=== PATIENT | female | born 1945 | race Caucasian/White ===

== ENCOUNTER 2018-02-17 13:14 | Emergency (ER) | payer OTHER ==
[~2018-02-17] VITALS: Ht 172.7 cm; Wt 50.4 kg
[2018-02-17] MEDS ORDERED: PROAIR RESPICL90 MCG INH (13:37)
[2018-02-17] MEDS ORDERED: ARIMIDEX PO (13:37)
[2018-02-17] MEDS ORDERED: LIPITOR 20 MG T20 M1 PO (13:38)
[2018-02-17] MEDS ORDERED: LEXAPRO 10 MG T10 M2 PO (13:39)
[2018-02-17] MEDS ORDERED: FISH OIL 1,001000 M2 PO (13:39)
[2018-02-17 14:05] LABS: ABSOLUTE NEUTROPHILS 7.4 thou/uL (1.4-8.2); BASOPHILS 0.5 % (0.0-2.0); EOSINOPHILS 1.7 % (0.0-3.0); HEMATOCRIT 39.1 % (37.0-47.0); HEMOGLOBIN 13.1 gm/dL (12.0-15.0); LYMPHOCYTES 20.6 % (24.0-44.0); MCH 36.2 pg (26.0-34.0); MCHC 33.5 g/dL (28.0-37.0); MCV 108.2 fL (80.0-100.0); MONOCYTES 6.3 % (1.0-8.0); PLATELET COUNT 300 thou/uL (150-400); POLYS 70.9 % (36.0-66.0); RBC 3.61 mil/uL (4.20-5.00); RDW 13.8 % (10.5-14.5); WBC 10.4 thou/uL (4.0-11.0)
[2018-02-17 14:24] LABS: CREATININE 0.8 mg/dL (0.6-1.0); POTASSIUM 4.5 mmol/L (3.5-5.1)
[2018-02-17 14:28] LABS: ALBUMIN 3.7 g/dL (3.4-5.0); TOTAL BILIRUBIN 0.3 mg/dL (<0.1-1.0)
[2018-02-17 14:48] LABS: MACROCYTES 2+
[2018-02-17] MEDS ORDERED: AUGMENTIN 500-1 EACH PO (14:54)
[2018-02-17 15:30] VITALS: BP 119/70
== END 2018-02-17 15:31 | disposition home or self-care (01) ==
LOC: ER 13:14
PROVIDERS: Physician Assistant
DX: S51.851A Open bite of right forearm, initial encounter (principal); L03.113 Cellulitis of right upper limb; W55.01XA Bitten by cat, initial encounter; Y93.89 Activity, other specified; Y92.89 Other specified places as the place of occurrence of the external cause; Y99.8 Other external cause status; E78.00 Pure hypercholesterolemia, unspecified; J44.9 Chronic obstructive pulmonary disease, unspecified; Z90.49 Acquired absence of other specified parts of digestive tract; Z90.12 Acquired absence of left breast and nipple; Z88.8 Allergy status to other drugs, medicaments and biological substances

== ENCOUNTER 2020-07-05 11:29 | Inpatient (IN) | payer OTHER ==
[~2020-07-05] VITALS: Ht 175.3 cm; Wt 23.1 kg
[2020-07-05] VITALS (40 sets, daily range): BP systolic 77–152; BP diastolic 45–89
[~2020-07-05 11:29] MED LIST: ARIMIDEX PO; AUGMENTIN 500-1 EACH PO; FISH OIL 1,001000 M2 PO; LEXAPRO 10 MG T10 M2 PO; LIPITOR 20 MG T20 M1 PO; PROAIR RESPICL90 MCG INH
[2020-07-05] MEDS ORDERED: ESCITALOPRAM OX10 MG PO (11:45)
[2020-07-05] MEDS ORDERED: OMEPRAZOLE 20 M20 M1 PO (11:45)
[2020-07-05 12:15] LABS: BE(vivo) -3.3 mmol/L (-2 to +3); HCO3 23.8 mmol/L (22.0-26.0); PCO2 51.1 mmHg (35.0-45.0); PO2 51.5 mmHg (80.0-100.0); pH 7.286 (7.360-7.450); sO2 81.9 % (92.0-98.0)
[2020-07-05 12:48] LABS: ABSOLUTE NEUTROPHILS 6.8 thou/uL (1.4-8.2); BASOPHILS 0.2 % (0.0-2.0); HEMATOCRIT 41.8 % (37.0-47.0); HEMOGLOBIN 12.6 gm/dL (12.0-15.0); MCH 29.2 pg (26.0-34.0); MCHC 30.2 g/dL (28.0-37.0); MCV 96.7 fL (80.0-100.0); MONOCYTES 9.9 % (1.0-8.0); PLATELET COUNT 231 thou/uL (150-400); POLYS 84.9 % (36.0-66.0); RBC 4.32 mil/uL (4.20-5.00)
[2020-07-05 12:59] LABS: CALCIUM 9.5 mg/dL (8.5-10.1); CREATININE 1.8 mg/dL (0.6-1.0); POTASSIUM 5.2 mmol/L (3.5-5.1)
[2020-07-05 13:07] LABS: ALBUMIN 3.2 g/dL (3.4-5.0); MAGNESIUM 2.4 mg/dL (1.8-2.4); TOTAL BILIRUBIN 0.6 mg/dL (0.2-1.0); TOTAL PROTEIN 6.7 g/dL (6.4-8.2); TROPONIN-I 0.48 ng/mL (<0.06)
[2020-07-05 13:34] LABS: BE(vivo) 0.9 mmol/L (-2 to +3); HCO3 28.1 mmol/L (22.0-26.0); PCO2 56.6 mmHg (35.0-45.0); PO2 91.1 mmHg (80.0-100.0); pH 7.314 (7.360-7.450); sO2 96.2 % (92.0-98.0)
[2020-07-05 13:57] LABS: ANISOCYTOSIS 1+; PLATELET ESTIMATE NORMAL
--- NOTE | 2020-07-05 14:16 | NUR ---
ATTEMPTED TO CALL REPORT; ICU NURSE STATED THEY WERE NEVER INFORMED THEY WERE GETTING ANOTHER PT AND SAID THEY WOULD CALL BACK AFTER DETERMINING WHO WOULD BE TAKING THE PT
--- NOTE | 2020-07-05 17:15 | NUR ---
O2 SAT IN THE LOWER 80'S, ENCOURAGED TO TAKE DEEP BREATHES, FIO2 ON BIPAP INCREASED TO 100%, DR SEARS NOTIFIED. ORDERS RECEIVED.
[2020-07-05 17:31] LABS: BE(vivo) -1.4 mmol/L (-2 to +3); HCO3 25.2 mmol/L (22.0-26.0); PCO2 49.9 mmHg (35.0-45.0); sO2 84.3 % (92.0-98.0)
[2020-07-05 17:33] LABS: PO2 52.7 mmHg (80.0-100.0); pH 7.322 (7.360-7.450)
--- NOTE | 2020-07-05 18:45 | NUR ---
DR ROSA CALLED BACK IN REGARDS TO CARDIOLOGY CONSULT, INFORMED OF ELEVATED TROPONIN OF 0.48 AND BNP OF 22,000. EKG DONE AT BEDSIDE PER ORDER.
--- NOTE | 2020-07-05 19:05 | NUR ---
[facility]G'S CALLED TO DR CHINCHILLA BY RT, PATIENT EDUCATED ABOUT INTUBATION AND IS IN AGREEMENT. SEDATION GIVEN FOR INTUBATION AND INTUBATED WITH 7.0 ETT AT [address] MOULTON. O2 SAT DOWN INTO THE LOWER 60'S. ETT REPOSIONED BY DR MOULTON. OGT INSERTED 19FR. SUCTIONED THICK CLEAR TO CREAMY SECRETIONS. PROPOFOL INITIATED AND TITRATED FOR SEDATION AND LEVOPHED INITIATED FOR HYPOTENSION. BP AND SAT'S ARE INCREASING. DR CHINCHILLA NOTIFIED OF RESP STATUS BY DR MOULTON AND JOY.
[2020-07-05 19:08] LABS: BE(vivo) -2.9 mmol/L (-2 to +3); sO2 87.1 % (92.0-98.0)
[2020-07-05 19:09] LABS: pH 7.299 (7.360-7.450)
--- NOTE | 2020-07-05 20:27 | NUR ---
DR SEARS UPDATED TO PATIENT STATUS.
[2020-07-05 22:52] LABS: BE(vivo) -0.3 mmol/L (-2 to +3); HCO3 23.7 mmol/L (22.0-26.0); PO2 129.6 mmHg (80.0-100.0); pH 7.425 (7.360-7.450); sO2 98.7 % (92.0-98.0)
--- NOTE | 2020-07-05 23:24 | NUR ---
CALLED DR. CHINCHILLA AT 2230 TO REPORT FLOTRACK NUMBERS AND TO GIVE STATUS UPDATE. REPORTED: FXU=2349, SVV=4, CI=1.8, CO=2.4, CVP=13, BP 149/88 VIA ART LINE, MINIMAL URINE OUTPUT. ASKED IF HE WISHED NS TO STAY AT 126ML/HR AND IF HE WANTED LASIX. ALSO REPORTED LARGE AIR LEAK IN CT AND SUBQ AIR FROM NECK DOWN TO NIPPLE LINE BL. ORDERS TO GIVE 40MG LASIX IV, KEEP NS RUNNING AND INCREASE CT TO -40 OF SUCTION.
[2020-07-06] VITALS (20 sets, daily range): BP systolic 69–165; BP diastolic 41–100
[2020-07-06 04:58] LABS: HEMATOCRIT 41.8 % (37.0-47.0); HEMOGLOBIN 13.1 gm/dL (12.0-15.0); MCH 29.5 pg (26.0-34.0); MCHC 31.3 g/dL (28.0-37.0); MCV 94.4 fL (80.0-100.0); RBC 4.43 mil/uL (4.20-5.00); RDW 16.1 % (10.5-14.5); WBC 9.4 thou/uL (4.0-11.0)
[2020-07-06 05:15] LABS: CREATININE 1.2 mg/dL (0.6-1.0); TROPONIN-I 0.43 ng/mL (<0.06)
--- NOTE | 2020-07-06 09:40 | NUR ---
cm notified by cm supervisor rework that hospitalist reporting there is no one to make decision for her and possible will need to look into guardianship, if unable to find contacts for hans
--- NOTE | 2020-07-06 10:26 | 2DMMODE ---
[facility] [place] [address] 2 D/M-MODE ECHOCARDIOGRAM Name: HERMAN SOLOMON Room #: 237-P ADM IN M.R.#: [id number] Admission: 07/05/20 Attend Phys: Charlie Salomon MD Discharge: Date of : 41 Report #: [id number] THIS REPORT FOR: cc: MATEUS GIFFORD MD Physician not on staff Tj Odonnell MD [facility] ~ APPROVED REPORT Study performed: 07/06/2020 08:53:55 EXAM: Comprehensive 2D, Doppler, and color-flow Echocardiogram Patient Location: ICU Room #: [facility] Status: on-call BSA: 1.54 HR: 90 bpm BP: 152/81 mmHg Rhythm: RBBB Other Information Study Quality: Adequate/off axis images Technically limited study due to thin body habitus, on vent. Indications Respiratory failure, elevated troponin. Hx: CA, COPD, HLP. 2D Dimensions IVSd: 8.69 (7-11mm) LVOT Diam: 20.14 (18-24mm) LVDd: 24.19 mm PWd: 9.93 (7-11mm) Ascending Ao: 28.29 (22-36mm) LVDs: 18.89 (25-40mm) Aortic Root: 31.72 mm Aortic Valve AoV Peak Ricky.: 1.03 m/s AO Peak Gr.: 4.23 mmHg LVOT Max P.20 mmHg LVOT Max V: 0.55 m/s JONATHAN Vmax: 1.70 cm2 Mitral Valve E/A Ratio: 0.7 MV Decel. Time: 172.15 ms [facility] [address] [place] [address] 2 D/M-MODE ECHOCARDIOGRAM Name: HERMAN SOLOMON Room #: 237-P ADM IN Gisell#: [id number] Admission: 07/05/20 Attend Phys: Charlie Salomon MD Discharge: Date of : 41 Report #: [id number] MV E Max Ricky.: 0.39 m/s MV A Ricky.: 0.57 m/s MV PHT: 49.92 ms Pulmonary Valve PV Peak Ricky.: 0.49 m/s PV Peak Gr.: 0.96 mmHg Tricuspid Valve TR Peak Ricky.: 3.27 m/s RAP Estimate: 15.00 mmHg TR Peak Gr.: 43.00 mmHg PA Pressure: 58.00 mmHg Left Ventricle Left ventricular cavity is small. There is normal left ventricular wall thickness. Left ventricular systolic function is borderline. Septal flattening consistent with right ventricular pressure overload. LVEF is 50%. Mild diastolic dysfunction is present. Right Ventricle Right ventricle is severely dilated and severely hypokinetic. Large apically displaced round right ventricular mass. ( 2.0cm x 2.5cm ), probably attached to right ventricle by a stalk. Differential diagnosis is broad and includes thrombus, cardiac masses both benign and malignant (myxoma, teratoma, metastases, sarcoma), and inflammatory masses (less likely; fungus, parasitic). Favor RV myxoma or thrombus Atria The left atrium size is normal. Right atrium is dilated. Aortic Valve Aortic valve is trileaflet, mildly calcified. No aortic regurgitation is present. There is no aortic valvular stenosis. Mitral Valve The mitral valve is normal in structure. There is no mitral valve regurgitation noted. No evidence of mitral valve stenosis. Tricuspid Valve The tricuspid valve is normal in structure. Mild tricuspid regurgitation. Estimated PAP is 55-60mmHg. Pulmonic Valve The pulmonary valve is normal in structure. Moderate pulmonic regurgitation. [facility] [address] [place] [address] 2 D/M-MODE ECHOCARDIOGRAM Name: HERMAN SOLOMON Room #: 237-P ADM IN M.R.#: [id number] Admission: 07/05/20 Attend Phys: Charlie Salomon MD Discharge: Date of : 41 Report #: [id number] Great Vessels The aortic root is normal in size. IVC is dilated and collapses <50% with inspiration. Pericardium Small pericardial effusion. Pleural effusion noted. <Conclusion> Left ventricular systolic function is borderline. Septal flattening consistent with right ventricular pressure overload. LVEF is 50%. Septal flattening consistent with right ventricular pressure overload. Mild diastolic dysfunction is present. Right ventricle is severely dilated and severely hypokinetic. Large apically displaced, round right ventricular mass. ( 2.0cm x 2.5cm ), probably attached to right ventricle by a stalk. Differential diagnosis is broad and includes thrombus, cardiac masses both benign and malignant (myxoma, teratoma, metastases, sarcoma), and inflammatory masses (less likely; fungus, parasitic). Favor RV myxoma or thrombus Aortic valve is trileaflet, mildly calcified. No aortic regurgitation or stenosis The mitral valve is normal in structure. No mitral valve regurgitation. Mild tricuspid regurgitation. Estimated pulmonary artery pressure of 55-60mmHg. Small pericardial effusion. <ELECTRONICALLY SIGNED> By: Tj Odonnell MD, FACC 07/06/20 1025 1025 1025 Tj Odonnell MD, FACC /INF
--- NOTE | 2020-07-06 10:37 | EKG ---
[facility] [place] [address] ELECTROCARDIOGRAM REPORT Name: HERMAN SOLOMON Room #: 237- ADM IN M.R.#: [id number] Admission: 07/05/20 Attend Phys: Charlie Salomon MD Discharge: Date of : 41 Report #: [id number] THIS REPORT FOR: cc: MATEUS GIFFORD MD Physician not on staff Tj Odonnell MD [facility] ~ THIS REPORT FOR: //name// [facility] ED Test Date: 2020-07-05 Test Time: 14:13:26 Pat Name: HERMAN SOLOMON Department: Room: [facility] Gender: F Rat Farmer: [facility] : 1945 Requested By: Rey Wells Order Number: [id number] MD: Tj Odonnell Measurements Intervals [place] Rate: 88 P: 77 CO: 151 QRS: 106 QRSD: 135 T: -29 QT: 391 QTc: 473 Interpretive Statements Sinus rhythm Right ventricular hypertrophy No previous ECG available for comparison Electronically Signed On 07-06-2020 10:37:24 GELATIN PLANT SUPERVISOR by Tj Odonnell [email or web address] <ELECTRONICALLY SIGNED> By: Tj Odonnell MD, FACC 07/06/20 1037 [facility]3 141 Tj Odonnell MD, [facility] /EPI
--- NOTE | 2020-07-06 10:43 | EKG ---
[facility] [place] [address] ELECTROCARDIOGRAM REPORT Name: HERMAN SOLOMON Room #: 237- ADM IN M.R.#: [id number] Admission: 07/05/20 Attend Phys: Charlie Salomon MD Discharge: Date of : 41 Report #: [id number] THIS REPORT FOR: cc: MATEUS GIFFORD MD Physician not on staff Tj Odonnell MD [facility] ~ THIS REPORT FOR: //name// [facility] Test Date: 2020-07-05 Test Time: 18:37:37 Pat Name: HERMAN SOLOMON Department: Room: [facility] Gender: F Guest Services Manager: CRISTEL : 1945 Requested By: Tj Odonnell Order Number: [id number] MD: Tj Odonnell Measurements Intervals [place] Rate: 84 P: 81 [place]: 150 QRS: 104 QRSD: 135 T: -25 QT: 390 QTc: 462 Interpretive Statements Sinus rhythm Right ventricular hypertrophy Baseline wander in lead(s) V4 Compared to ECG 07/05/2020 14:13:26 No significant changes Electronically Signed On 07-06-2020 10:43:11 CABLE INSTALLER REPAIRER HELPER by Tj Odonnell [email or web address] <ELECTRONICALLY SIGNED> By: Tj Odonnell MD, [facility] 07/06/20 1043 1837 1837 Tj Odonnell MD, [facility] /EPI
--- NOTE | 2020-07-06 10:47 | EKG ---
[facility] [place] [address] ELECTROCARDIOGRAM REPORT Name: HERMAN SOLOMON Room #: 237- ADM IN M.R.#: [id number] Admission: 07/05/20 Attend Phys: Charlie Salomon MD Discharge: Date of : 41 Report #: [id number] THIS REPORT FOR: cc: MATEUS GIFFORD MD Physician not on staff Tj Odonnell MD [facility] ~ THIS REPORT FOR: //name// [facility] Test Date: 2020-07-06 Test Time: 07:59:02 Pat Name: HERMAN SOLOMON Department: Room: [facility] Gender: F Lithographic Press Feeder: [place] : 1945 Requested By: Tj Odonnell Order Number: [id number] MD: Tj Odonnell Measurements Intervals [place] Rate: 69 P: 82 [place]: 151 QRS: 114 QRSD: 132 T: -85 QT: 427 QTc: 458 Interpretive Statements Sinus rhythm RBBB Consider RVH Compared to ECG 07/05/2020 18:37:37 No significant change was found Electronically Signed On 07-06-2020 10:47:15 MOTOR ASSEMBLER by Tj Odonnell [email or web address] <ELECTRONICALLY SIGNED> By: Tj Odonnell MD, FACC 07/06/20 1047 0759 0759 Tj Odonnell MD, [facility] /EPI
[2020-07-06 12:12] LABS: BE(vivo) -7.5 mmol/L (-2 to +3); PO2 66.4 mmHg (80.0-100.0); sO2 84.4 % (92.0-98.0)
[2020-07-06 12:13] LABS: PCO2 79.2 mmHg (35.0-45.0); pH 7.099 (7.360-7.450)
--- NOTE | 2020-07-06 14:59 | NUR ---
PT INTUBATED, SETTINGS CHANGED UNDER THE PROVIDERS ORDERS. RIGHT CHEST TUBE IN PLACE WITH MINIMIAL SERO-SANG DRAINAGE, DRESSING CDI, SMALL AIR LEAK PROVIDER AWARE. PT WAS ABLE TO FOLLOW COMMANDS THIS AM. PT HAS DIFFUSE BILATERAL SUBCUTANEOUS EMPHASEMA. INCREASED CREATNINE AND LACTATE RESOLVING. ECCO COMPLETED THIS AM, FOLLOWED BY CLAIR ULTRASOUND OF BILATERAL LEGS, AND CONSULT TO DR WHITMAN. DR WHITMAN SIGNED OFF, NO ORDERS. FLOTRAC IN PLACE FROM RIGHT RADIAL A-LINE, PROVIDER AWARE OF NUMBERS. LEVOPHED NEEDED TO BE TITRATED UP THROUGHTOUT DAY TO SUSTAIN MAP > THAN 60. BEAR HUGGER IN PLACE DUE TO INABILITY TO OBTAIN TEMPERATURE. PT HAS ONE FRIEND LISTED, WHO SAYS THAT HE HAS BEEN HER PRIMARY CAREGIVER FOR MULTIPLE YEARS, HE DOES NOT HAVE ANY OFFICIAL PAPERWORK THAT STATES HIS DECISION MAKING POWER. I INSTRUCTED HIM TO FIND ANY OFFICIAL PAPER WORK THAT GIVES HIM DECISION MAKING ABILITY. DR SEARS HAS BEEN IN CONTACT WITH CASE MANAGEMENT TO OBTAIN LEGAL GUARDIAN SHIP FROM/WITH THE STATE TO MAKE MORE INFORMED DECISIONS FOR THE PT. FRIEND (CARLA) HAS BEEN EDUCATED. PT HAS BEEN UPDATED AND EDUCATED ON CONDITION AND POC. PT NOT PROGRESSING TOWARDS POC. AFEBRILE, NO BM.
[2020-07-07] VITALS (25 sets, daily range): BP systolic 48–128; BP diastolic 27–71
[2020-07-07 05:10] LABS: HEMATOCRIT 35.3 % (37.0-47.0); HEMOGLOBIN 12.4 gm/dL (12.0-15.0); MCH 32.1 pg (26.0-34.0); MCV 91.7 fL (80.0-100.0); PLATELET COUNT 151 thou/uL (150-400); RBC 3.85 mil/uL (4.20-5.00); RDW 13.4 % (10.5-14.5); WBC 8.5 thou/uL (4.0-11.0)
[2020-07-07 05:17] LABS: BE(vivo) -6.1 mmol/L (-2 to +3); PCO2 36.3 mmHg (35.0-45.0); PO2 220.1 mmHg (80.0-100.0); pH 7.336 (7.360-7.450); sO2 99.4 % (92.0-98.0)
[2020-07-07 07:18] LABS: ALBUMIN 2.9 g/dL (3.4-5.0); CALCIUM 7.6 mg/dL (8.5-10.1); CREATININE 1.8 mg/dL (0.6-1.0); TOTAL BILIRUBIN 0.4 mg/dL (0.2-1.0); TOTAL PROTEIN 5.9 g/dL (6.4-8.2)
[2020-07-07 07:35] LABS: POTASSIUM 5.5 mmol/L (3.5-5.1)
[2020-07-07 13:53] LABS: ABSOLUTE NEUTROPHILS 7.9 thou/uL (1.4-8.2); NUCLEATED RBCS 4 /100WBC
[2020-07-07 13:54] LABS: ANISOCYTOSIS 1+
--- NOTE | 2020-07-07 16:22 | NUR ---
PT INTUBATED AND SEDATED, VENT SETTINGS UNCHANGED. CHEST TUBE PATENT WITH SMALL AIR LEAK, PROVIDER AWARE. A-LINE IN PLACE, PATENT, SLUGGISH WHEN DRAWING BLOOD, NO HEMATOMA, PULSE INTACT. FLOTRAC IN PLACE. AFEBRILE, NO BM, LOW UOP, PROVIDER AWARE. PT AND FRIEND HAVE BEEN UPDATED AND EDUCATED ON PT CONDITION AND POC. PT NOT PROGRESSING TOWARDS POC.
--- NOTE | 2020-07-07 23:00 | NUR ---
SPOKE AT LENGTH TO PTS LABOR TRAINER CARLA ART BP LOW 70'S HE STATES IF SHE DIES TONIGHT SHE WANTS HER BODY TO GO [facility] DR CHINCHILLA PLACED ORDERS FOR DOBUTAMINE GTT AT 2.5 MCG. REMAINS IN SINUS RHYTHM WILL CONT TO MONITOR
[2020-07-08] VITALS (24 sets, daily range): BP systolic 70–121; BP diastolic 40–82
--- NOTE | 2020-07-08 06:00 | NUR ---
REMAINS INTUBATED AND SEDATED. TITRATING LEVO GTT DOWN REMAINS ON DOBUTAMINE AT 2.5 MCG 500 CC UO THIS SHIFT REMAINS A DNR NOT PROGRESSIG TOWARD GOALS WILL CONT TO MONITOR
[2020-07-08 07:36] LABS: ALBUMIN 2.4 g/dL (3.4-5.0); CALCIUM 8.2 mg/dL (8.5-10.1); CREATININE 2.1 mg/dL (0.6-1.0); POTASSIUM 4.8 mmol/L (3.5-5.1); TOTAL BILIRUBIN 0.7 mg/dL (0.2-1.0); TOTAL PROTEIN 5.4 g/dL (6.4-8.2)
[2020-07-08 07:37] LABS: ABSOLUTE NEUTROPHILS 8.8 thou/uL (1.4-8.2); BASOPHILS 0.1 % (0.0-2.0); HEMATOCRIT 40.8 % (37.0-47.0); HEMOGLOBIN 12.7 gm/dL (12.0-15.0); LYMPHOCYTES 6.9 % (24.0-44.0); MCH 29.2 pg (26.0-34.0); MCHC 31.1 g/dL (28.0-37.0); MCV 93.8 fL (80.0-100.0); MONOCYTES 8.4 % (1.0-8.0); PLATELET COUNT 134 thou/uL (150-400); POLYS 84.6 % (36.0-66.0); RBC 4.35 mil/uL (4.20-5.00); RDW 16.4 % (10.5-14.5); WBC 11.1 thou/uL (4.0-11.0)
--- NOTE | 2020-07-08 09:55 | NUR ---
Nutrition: PT NPO x 2 days. Nsg reports possible withdrawal of care however if care continues, REC Jevity 1.5 to reach 40 mL/hr slowly. Pt refeeding syndrome risk.
--- NOTE | 2020-07-08 11:49 | NUR ---
chart review. cm unable to visit with hans rt remains on vent, chest tube. cm spoke with CARLA via phone call, intro to cm, and dcp. cm education to see if have dpoa (make decision for her) on file at cancer center " yes i will call them, they always have me sign to make decision for her if needed. She has lived with me since her brother up at sold their parents house out from her after her parents . she has been doing good but then few weeks ago auntie called to let her know the reason she not her from her daughter that she adopted when she was 1, commented suicide. after that it was hard for me to he her to want to do anything. she been friends with my mom and i cared for her also, she recently . hans did not was to eat and was just sadden. september of 2016 she moved in with me. she is independent when feeling ok, needs some assist in and out of shower. she is able to dress her self, able to feed her self and go to bathroom on her own. live in nice home [facility] to [facility]. had hh in past and been to rehab in the past. has walker with seat and breaks. usually on 3 L of oxygen at home. this is in [facility] but would like to talk with , thank you for calling"/caregiver CARLA. will cont following as needed for dc needs.
[2020-07-09] VITALS (27 sets, daily range): BP systolic 51–148; BP diastolic 25–89
[2020-07-09 05:30] LABS: HEMATOCRIT 41.6 % (37.0-47.0); HEMOGLOBIN 13.2 gm/dL (12.0-15.0); MCH 29.3 pg (26.0-34.0); MCHC 31.7 g/dL (28.0-37.0); MCV 92.4 fL (80.0-100.0); RBC 4.5 mil/uL (4.20-5.00); RDW 15.8 % (10.5-14.5); WBC 10.3 thou/uL (4.0-11.0)
--- NOTE | 2020-07-09 05:30 | NUR ---
REMAINS INTUBATED. PROPOFOL GTT TITRATED. EXTREM FLACCID. FOLLOWS NO COMMANDS. LEVOPED GTT AT 3 MCG. 180 CC UOP THIS SHIFT. REMAINS A DNR BATHED. NOT PROGRESSING TOWARD GOALS. WILL CONT TO MONITOIR.
[2020-07-09 05:41] LABS: CALCIUM 8.6 mg/dL (8.5-10.1); CREATININE 1.7 mg/dL (0.6-1.0); POTASSIUM 4.1 mmol/L (3.5-5.1)
--- NOTE | 2020-07-09 11:45 | NUR ---
cm tried to reach dr smith at . was told by cancer center that hans pcp is not dr smith, the is [facility] and cancer dr is kadie Martinez. cm called dr curtis pcp at , no return call yet.
--- NOTE | 2020-07-09 12:28 | HC ---
[facility] [place] [address] CONSULTATION Name: HERMAN SOLOMON Room #: [facility]- ADM IN M.R.#: [id number] Admission: 07/05/20 Attend Phys: Charlie Salomon MD Discharge: Date of : 41 Report #: [id number] THIS REPORT FOR: cc: MATEUS GIFFORD MD Physician not on staff Jonathan Beth MD ~ DATE OF SERVICE: 07/06/2020 We were asked to see the patient by Dr. Elias. HISTORY OF PRESENT ILLNESS: The patient is a 75-year-old with a right ventricular mass. The patient is a 75-year-old admitted 07/05/2020 with shortness of breath and altered mental status. The patient was brought from home when a caregiver noticed that she had labored breathing and oxygen saturation on a finger oximeter said 95%. It should be said that all of this history is from the chart as the patient is currently on the ventilator. Since admission, the patient was initially started on BiPAP, but required intubation for increased work of breathing and hypoxemia. This was done emergently on 07/05. PAST HISTORY: Includes renal dysfunction, pulmonary dysfunction, cat bite, forearm cellulitis, community-acquired pneumonia, chronic obstructive pulmonary disease, dehydration, elevated troponin, severe sepsis, tetanus toxoid vaccination. CURRENT ALLERGIES: Allergic to TUBERCULIN PPD. PREVIOUS MEDICATIONS: Omeprazole, albuterol, anastrozole, Lexapro. OTHER PAST HISTORY: Includes elevated cholesterol, chronic obstructive pulmonary disease, left mastectomy, appendectomy. SOCIAL HISTORY: The patient is a former smoker, quit more than 1 year ago. REVIEW OF SYSTEMS: Not obtainable. I have no reason to differ with whatever is in the chart. PHYSICAL EXAMINATION: GENERAL: The patient is currently in bed on the ventilator. She is a small person, extremely sarcopenic. VITAL SIGNS: Blood pressure ____ on high dose of Levophed, heart rate 90, temperature 35.9, pulse ox 82. HEENT: No scleral icterus. I see no arcus. [facility] [address] [place] [address] CONSULTATION Name: HERMAN SOLOMON Room #: [address] [place] [address] IN M.R.#: [id number] Admission: 07/05/20 Attend Phys: Charlie Salomon MD Discharge: Date of : 41 Report #: [id number] NECK: No mass, no bruit audible. Jugular venous distention present. CHEST: Distant breath sounds with some subcutaneous air on the right side. HEART: Rhythm, distant heart sounds, no murmur. ABDOMEN: Flat, soft. EXTREMITIES: 1+ femoral pulses. I do not feel popliteal pulses. No skin rash or infection noted. No significant peripheral edema. We note that transthoracic echo revealed a 2.5 cm round right ventricular mass attached to what appears to be the trabeculae or chordae tendineae on the right side. I do not see atrial lesions. This was the reason for consultation. IMPRESSION: The patient has right ventricular mass. The patient presented with acute pulmonary dysfunction. Nothing has been done to rule out pulmonary embolism, but the patient is critically ill and at this point clearly the last thing this patient needs would be exploratory cardiac operation for this cardiac mass, which is either an acute discovery of a chronic problem or related to her presentation in the sense that it is thrombosed and field representative of other thrombi, embolized more distally, unlikely for this to be a myxoma as well as typically left atrial, not right ventricular. I would expect other cardiac tumors to be even further down the list. This is most likely a manifestation of thrombus and may be chronic. In any event, the patient is critically ill at this point, on high dose pressor with difficulty ventilating and oxygenating and in the setting of an already weak, chronically depleted patient, cardiac surgery not recommended at this point. Thank you for the consult. <ELECTRONICALLY SIGNED> By: Jonathan Beth MD 07/09/20 1228 1252 0041 Jonathan Beth MD /nt
--- NOTE | 2020-07-09 18:13 | NUR ---
1030 DR. OCAMPO AT BEDSIDE STATES PROGNOSIS IS POOR AND ORDERED PALLIATVIE CONSULT. 1100 PT BP BEGAN TO DECREASE SYSTOLICS INTO 70'S LOW 80'S MAPS <60. LEVOPHED TITRATED ACCORDINGLY. 1240 DR SEARS PAIGED NO NEW ORDERS AT THIS TIME. DR SEARS ADDED THAT HE HAS SPOKE W/STRAP MACHINE OPERATOR AUTOMATIC AND DUE TO PT CODE STATUS ONLY SO MUCH CAN BE DONE REGARDING PT DECREASING BP. ALSO CANCEL PALLIATIVE CONSULT PER ORION. TMAX 98.[address] MAJORITY OF DAY. URINE OUT PUT 190 THIS SHIFT. 0 CHEST TUBE OUTPUT. PT NOT PROGRESSING IN PLAN OF CARE
[2020-07-10] VITALS (94 sets, daily range): BP systolic 61–157; BP diastolic 24–100
[2020-07-10 04:04] LABS: CALCIUM 8.7 mg/dL (8.5-10.1); POTASSIUM 4.9 mmol/L (3.5-5.1)
--- NOTE | 2020-07-10 06:26 | NUR ---
This RN to bedside at 1900. Patient withdrawls from pain, and opens eyes spontaneously but otherwise does not follow commands or seem to track. Vent settings unchanged. Unable to wean levophed gtt, remains on a high amount. Chest tube in place, no output noted. Will continue to monitor.
--- NOTE | 2020-07-10 09:05 | NUR ---
0905 - SPOKE WITH CARLA, PT'S CAREGIVER AND PROVIDED UPDATE REGUARDING CURRENT GOALS AND PLAN OF CARE. PT'S CAREGIVER AGREED
--- NOTE | 2020-07-10 15:04 | NUR ---
PT SEEN TODAY BY /. PT IS PROGRESSING TOWARDS DISCHARGE, FIO2 DECREASED FROM 100% TO 70% THIS SHIFT, WHILE ON LESS SEDAIVES PT WAS SEEN GRIMACING, SLOWLING FLAILING ARMS TOWARDS THE FACE TO GUARD WHILE ORAL CARE WAS BEING PROVIDED. TO ADDRESS GRIMACING, FENTANYL GTT WAS ORDERED AND ADMINISTERED PER ORDER. PER WE ARE MONITORING THIS PT'S STATUS DAY BY DAY AND UPDATING THE CAREGIVER CARLA, WHOSE DPOA PAPERWORK WAS FOUND BY A PCP AT [facility]. PT REMAINS ON DNR, TUBE FEEDING STARTED AND MAINTAINING GOAL RATE OF 10CC/HR. CAREGIVER RJ HAS BEEN UPDATED BY THE RN THIS MORNING. CONTINUING TO MONITOR AND WILL UPDATE NEEDED.
[2020-07-11] VITALS (106 sets, daily range): BP systolic 43–148; BP diastolic 21–85
--- NOTE | 2020-07-11 06:57 | NUR ---
VSS. ST ON MONITOR. CHEST TUBE SITE BLEEDING; DRESSING SATURATED. NOTIFIED DR OCAMPO. ORDER TO CHANGE DRESSING. DRESSING CHANGED. PT BATHED. LINENS CHANGED. CHEST TUBE ATRIUM CHANGED. PT INTUBATED. SEDATED ON PROPOFOL, FENTANYL GTTS. BLOOD PRESSURE MAINTAINED ON LEVOPHED GTT. 650 CC URINE OUT OVERNIGHT. FIO2 DECREASED FROM 80% TO 60% THIS SHIFT; SATS MAINTAINED >95%. PT PROGRESSING TOWARDS GOALS IN PLAN OF CARE.
--- NOTE | 2020-07-11 11:53 | NUR ---
chart review. cont to require vent and nutritional support. spoke with RJ via phone call. " no question just will get my update today and wait and here from dr. scout maxwell i am cont to call and check on her"/jaya. passed on to bedside nurse. will cont following as needed for dc needs.
[2020-07-11 14:40] LABS: HEMOGLOBIN 13.1 gm/dL (12.0-15.0); MCHC 30.8 g/dL (28.0-37.0)
[2020-07-11 14:41] LABS: HEMATOCRIT 42.5 % (37.0-47.0); MCH 28.7 pg (26.0-34.0); MCV 93.3 fL (80.0-100.0); RBC 4.56 mil/uL (4.20-5.00)
[2020-07-11 14:49] LABS: CALCIUM 8.3 mg/dL (8.5-10.1); CREATININE 1.8 mg/dL (0.6-1.0); POTASSIUM 4.9 mmol/L (3.5-5.1)
--- NOTE | 2020-07-11 18:13 | NUR ---
VENT SETTINGS: AC14/450/10/.60. LARGE HEMATOMA TO R WRIST, ARTERIAL DOPPLER SHOWS NO RADIAL PULSE DISTAL TO HEMATOMA. REPORTED TO DR. SEARS. LEVOPHED ON STANDBY WHILE DRAWING BLOOD THIS AFTERNOON AND BP PLUMMETED TO 50'S SYSTOLIC. NOW MAXED OUT AT 30MCG. MAP > 60. SPOKE TO DAVID AGUIRRE AND UPDATED HIM ON PLAN OF CARE AND CONDITION OF PATIENT.
[2020-07-12] VITALS (10 sets, daily range): BP systolic 49–104; BP diastolic 26–60
--- NOTE | 2020-07-12 01:17 | NUR ---
PATIENT REMAINS ON THE VENT. REMAINS HYPOTENSIVE. PATIENT IS MAXED ON LEVOPHED AND VASOPRESSIN. LOW U/O. AFEBRILE. SINUS TACHY. FENTANYL FOR SEDATION. WILL KEEP MONITORING.
--- NOTE | 2020-07-12 04:43 | NUR ---
AT APPROX 0100 PATIENT CONTINUED TO BE HYPOTESIVE. MAXED ON LEVOPHED AND VASOPRESSIN. NURSE PRACTIONER INFORMED. WOOD ROUTER HAND TALKED TO FAMILY. FAMILY DECIDED TO GO COMFORT CARE. FAMILY AT THE BEDSIDE. CARE D/C'D AT APPROX 0200. PATIENT AT 0235. [facility] CALLED. PATIENT NOT A CANDIDATE FOR ORGAN OR TISSUE DONATION. DR OCAMPO NOTIFIED. NURSE PRACTIONER AWARE . PROGRAMMING ENGINEER NOTIFIED. SECURITY NOTIFIED AND BODY TAKEN TO THE MORGUE. PERSONAL BELONGINGS TAKEN WITH THE BODY.
--- NOTE | 2020-07-15 18:06 | PATH ---
[facility] [address] [place] [address] PATHOLOGY RPT PROCEDURE Name: HERMAN SOLOMON Room #: [facility] IN M.R.#: [id number] Admission: 07/05/20 Date of : 41 Discharge: 07/12/20 Report #: [id number] Path Case #: [id number] Note [facility] Accession Number: [id number] TESTS RESULT FLAG UNITS REF RANGE LAB Clinician Provided Cytology Information No. of containers..01 Other (Miscellaneous) Source: BAL DIAGNOSIS: BAL NEGATIVE FOR MALIGNANT EPITHELIAL CELLS. NORMAL BRONCHIAL CELLS AND MACROPHAGES ARE PRESENT. PULMONARY MACROPHAGES (DUST CELLS) ARE PRESENT. SILVER METHENAMINE STAINED SMEARS ARE NEGATIVE FOR PNEUMOCYSTIS JIROVECI PROPERLY CONTROLLED FUNGAL STAIN. NO FUNGAL ORGANISMS ARE PRESENT. Pathologist ICD10: 02 R06.02 Signed out by: Lucy Lopes MD, Pathologist NPI- [id number] Performed by: Maddison Workman, Airways Control Specialist ([facility]) Gross description: 01 20 ML, CLDY COLRLESS, 1TP 1SILVR /LCS 07/12/2020 1416 Local FLAG LEGEND: L-Low Normal,H-High Normal,LL-Alert Low,HH-Alert High <-Panic Low,>-Panic High,A-Abnormal,AA-Critical Abnormal Performed at: [address] [place] [address] Gabriel Mora MD, [address] [address] Lucy Lopes MD, Specimen Comment: A courtesy copy of this report has been sent to [phone], [phone] Specimen Comment: [phone] Specimen Comment: Report sent to / DR SEARS Performed at: [address], [place], [place] [address] [address] [address] PATHOLOGY RPT PROCEDURE Name: KETTY SOLOMONDA Room #: 237-P DIS IN M.R.#: [id number] Admission: 07/05/20 Date of : 41 Discharge: 07/12/20 Report #: [id number] Path Case #: [id number] AR Gabriel Mora AR Phone: [phone]
== END 2020-07-12 02:35 | DRG 870 ==
LOC: ER 11:29 → EROBS 14:29 → ICU 14:29
PROVIDERS: Emergency Medicine; Internal Medicine Pulmonary Disease; Pediatrics; ADMIT Internal Medicine; ATTEND Internal Medicine
PROC: 0B9D8ZX Drainage of Right Middle Lung Lobe, Via Natural or Artificial Opening Endoscopic, Diagnostic (ICD-10-PCS; principal; 2020-07-05)
PROC: 4A133B1 Monitoring of Arterial Pressure, Peripheral, Percutaneous Approach (ICD-10-PCS; principal; 2020-07-05)
PROC: B548ZZA Ultrasonography of Superior Vena Cava, Guidance (ICD-10-PCS; principal; 2020-07-05)
PROC: 03HY32Z Insertion of Monitoring Device into Upper Artery, Percutaneous Approach (ICD-10-PCS; principal; 2020-07-05)
PROC: 0BH18EZ Insertion of Endotracheal Airway into Trachea, Via Natural or Artificial Opening Endoscopic (ICD-10-PCS; principal; 2020-07-05)
PROC: 4A133J1 Monitoring of Arterial Pulse, Peripheral, Percutaneous Approach (ICD-10-PCS; principal; 2020-07-05)
PROC: 02HV33Z Insertion of Infusion Device into Superior Vena Cava, Percutaneous Approach (ICD-10-PCS; principal; 2020-07-05)
PROC: 5A1955Z Respiratory Ventilation, Greater than 96 Consecutive Hours (ICD-10-PCS; principal; 2020-07-05)
PROC: 5A09357 Assistance with Respiratory Ventilation, Less than 24 Consecutive Hours, Continuous Positive Airway Pressure (ICD-10-PCS; principal; 2020-07-05)
PROC: 0W9B30Z Drainage of Left Pleural Cavity with Drainage Device, Percutaneous Approach (ICD-10-PCS; principal; 2020-07-05)
DX: A41.9 Sepsis, unspecified organism (principal); J18.9 Pneumonia, unspecified organism; G92 Toxic encephalopathy; J96.01 Acute respiratory failure with hypoxia; J96.02 Acute respiratory failure with hypercapnia; I21.A1 Myocardial infarction type 2; N17.9 Acute kidney failure, unspecified; J44.1 Chronic obstructive pulmonary disease with (acute) exacerbation; J44.0 Chronic obstructive pulmonary disease with (acute) lower respiratory infection; J93.9 Pneumothorax, unspecified; R57.9 Shock, unspecified; E46 Unspecified protein-calorie malnutrition; Z68.1 Body mass index [BMI] 19.9 or less, adult; R65.20 Severe sepsis without septic shock; E86.0 Dehydration; K21.9 Gastro-esophageal reflux disease without esophagitis; F32.9 Major depressive disorder, single episode, unspecified; E78.5 Hyperlipidemia, unspecified; F41.9 Anxiety disorder, unspecified; I51.89 Other ill-defined heart diseases; R79.89 Other specified abnormal findings of blood chemistry; R68.0 Hypothermia, not associated with low environmental temperature; E78.00 Pure hypercholesterolemia, unspecified; Z51.5 Encounter for palliative care; Z20.828 Contact with and (suspected) exposure to other viral communicable diseases; Z66 Do not resuscitate; Z90.49 Acquired absence of other specified parts of digestive tract; Z85.3 Personal history of malignant neoplasm of breast; Z90.12 Acquired absence of left breast and nipple; Z79.899 Other long term (current) drug therapy; Z88.7 Allergy status to serum and vaccine; Z87.891 Personal history of nicotine dependence; Z28.89 Immunization not carried out for other reason
CPT/HCPCS: 10078; 85026